=== PATIENT | female | born 1990 | race Caucasian/White ===

== ENCOUNTER 2016-07-16 08:34 | Observation (INO) | payer OTHER ==
[2016-07-16 09:06] VITALS: BP 130/86; PULSE 73; RESP 16; TEMP 98
== END 2016-07-16 15:45 | disposition home or self-care (01) | DRG 782 ==
LOC: OB 08:34
PROVIDERS: ADMIT Family Medicine; ATTEND Family Medicine
DX: O46.8X3 Other antepartum hemorrhage, third trimester (principal); Z3A.38 38 weeks gestation of pregnancy
CPT/HCPCS: 59025

== ENCOUNTER 2016-07-17 15:37 | Inpatient (IN) | payer OTHER ==
[2016-07-17] MEDS ORDERED: LACTATED RINGERS 1,000 ML IV PRN (16:02)
[2016-07-17] MEDS ORDERED: OXYTOCIN 10000 MU/ML SOL IM PRN (16:02)
[2016-07-17] MEDS ORDERED: MEPIVACAINE HCL 1% MPF 30 ML SOL INFIL PRN (16:02)
[2016-07-17] MEDS ORDERED: CARBOPROST 250 MCG/ML SOL IM PRN (16:02)
[2016-07-17] MEDS ORDERED: METHYLERGONOVINE MALEATE 0.2 MG/ML SOL IM PRN (16:02)
[2016-07-17] MEDS ORDERED: SODIUM CHLORIDE 0.9% FLUSH 10 ML SOL IV PRN (16:02)
[2016-07-17] MEDS ORDERED: FENTANYL 100MCG/2ML SOL IV PRN (16:02)
[2016-07-17 16:56] LABS: BASOPHILS % (AUTO) 1 % (0-3); EOSINOPHILS % (AUTO) 1 % (0-9); HEMATOCRIT 39 % (35-47); MEAN CORPUSCULAR HGB CONC 35.6 gm/dl (32.0-36.0); MEAN CORPUSCULAR VOLUME 86 fL (81-99); MONOCYTES % (AUTO) 6.8 % (0-12); NEUTROPHILS % (AUTO) 76.9 % (37-80)
[2016-07-17] MEDS ORDERED: DIPHENHYDRAMINE 50 MG/ML SOL IV PRN (17:35)
[2016-07-17] MEDS ORDERED: EPHEDRINE SULFATE 50 MG/ML SOL IV PRN (17:35)
[2016-07-17] MEDS ORDERED: NALBUPHINE HCL 20 MG/ML SOL IV PRN (17:35)
[2016-07-17] MEDS ORDERED: NALOXONE HYDROCHLORIDE 0.4 MG/ML SOL IV PRN (17:35)
[2016-07-17] MEDS: LACTATED RINGERS 1,000 ML IV SCH ×2 (17:45→18:12)
[2016-07-17] MEDS ORDERED: LACTATED RINGERS 1,000 ML IV SCH (17:45)
[2016-07-17] MEDS ORDERED: FENTANYL 250 MCG/ 5ML SOL ONE (18:02)
[2016-07-17] MEDS ORDERED: LIDOCAINE HCL 2% MPF SOL ONE (18:02)
[2016-07-17] MEDS ORDERED: ROPIVACAINE HYDROCHLORIDE 5 MG/ML SOL ONE (18:02)
[2016-07-17] MEDS ORDERED: ACETAMINOPHEN 325 MG PO PRN (22:20)
[2016-07-17] MEDS ORDERED: APAP/HYDROCODONE 325/5 TAB PO PRN (22:20)
[2016-07-17] MEDS ORDERED: WITCH HAZEL 1 EA PAD TOP PRN (22:20)
[2016-07-17] MEDS ORDERED: METHYLERGONOVINE MALEATE 0.2 MG TAB PO PRN (22:20)
[2016-07-17] MEDS ORDERED: FLEET ENEMA PR PRN (22:20)
[2016-07-17] MEDS ORDERED: BISACODYL 10 MG SUP PR PRN (22:20)
[2016-07-17] MEDS ORDERED: TEMAZEPAM 15MG 15 MG CAP PO PRN (22:20)
[2016-07-17] MEDS ORDERED: BENZOCAINE/MENTHOL 1 SPR TOP PRN (22:20)
[2016-07-17] MEDS: IBUPROFEN 600 MG TAB PO PRN (23:50)
[2016-07-17] MEDS: SODIUM CHLORIDE 0.9% FLUSH 10 ML SOL IV SCH (23:50)
[2016-07-18] MEDS: IBUPROFEN 600 MG TAB PO PRN ×3 (06:45→20:05)
[2016-07-18 08:10] VITALS: RESP 20
[2016-07-18] MEDS: SODIUM CHLORIDE 0.9% FLUSH 10 ML SOL IV SCH ×3 (08:50→23:39)
[2016-07-18] MEDS: MULTIVITAMIN2 1 EA TAB PO SCH (09:02)
[2016-07-18] MEDS: DOCUSATE SODIUM 100 MG SGL PO SCH ×2 (09:02→20:05)
[2016-07-18] MEDS: FOLIC ACID 1 MG TAB PO SCH (09:02)
[2016-07-19] MEDS: IBUPROFEN 600 MG TAB PO PRN ×2 (03:17→09:21)
[2016-07-19] MEDS: DOCUSATE SODIUM 100 MG SGL PO SCH (09:21)
[2016-07-19] MEDS: FOLIC ACID 1 MG TAB PO SCH (09:21)
[2016-07-19] MEDS: MULTIVITAMIN2 1 EA TAB PO SCH (09:21)
[2016-07-19 12:41] VITALS: BP 125/81; PULSE 72; TEMP 97.5; O2SAT 95
== END 2016-07-19 12:05 | disposition home or self-care (01) | DRG 775 ==
LOC: OB 15:37
PROVIDERS: ADMIT Family Medicine; ATTEND Family Medicine
PROC: 10907ZC Drainage of Amniotic Fluid, Therapeutic from Products of Conception, Via Natural or Artificial Opening (ICD-10-PCS; principal; 2016-07-17)
PROC: 10E0XZZ Delivery of Products of Conception, External Approach (ICD-10-PCS; 2016-07-17)
PROC: 0KQM0ZZ Repair Perineum Muscle, Open Approach (ICD-10-PCS; 2016-07-17)
DX: O76 Abnormality in fetal heart rate and rhythm complicating labor and delivery (principal); O70.1 Second degree perineal laceration during delivery; Z3A.38 38 weeks gestation of pregnancy; Z37.0 Single live birth
CPT/HCPCS: 36415; 85018; 85025; 94762; J0670; J2590; J2795; J3010

== ENCOUNTER 2018-03-04 08:10 | Inpatient (IN) | payer OTHER ==
[2018-03-04] MEDS ORDERED: NALBUPHINE HCL 20 MG/ML SOL IV PRN (12:00)
[2018-03-04] MEDS ORDERED: NALOXONE HYDROCHLORIDE 0.4 MG/ML SOL IV PRN (12:00)
[2018-03-04] MEDS ORDERED: DIPHENHYDRAMINE 50 MG/ML SOL IV PRN (12:00)
[2018-03-04] MEDS ORDERED: EPHEDRINE SULFATE 50 MG/ML SOL IV PRN (12:00)
[2018-03-04] MEDS: LACTATED RINGERS 1,000 ML IV SCH ×4 (12:05→14:47)
[2018-03-04 12:06] LABS: BASOPHILS % (AUTO) 0 % (0-3); EOSINOPHILS % (AUTO) 0 % (0-9); HEMATOCRIT 42 % (35-47); HEMOGLOBIN 13.4 gm/dl (12.0-15.5); LYMPHOCYTES % (AUTO) 16.4 % (10-50); MEAN CORPUSCULAR HEMOGLOBIN 29.1 pg (27.0-32.0); MEAN CORPUSCULAR HGB CONC 32.2 gm/dl (32.0-36.0); MEAN CORPUSCULAR VOLUME 90 fL (81-99); MONOCYTES % (AUTO) 3.4 % (0-12); NEUTROPHILS % (AUTO) 79.4 % (37-80)
[2018-03-04] MEDS ORDERED: FENTANYL 250 MCG/ 5ML SOL ONE (12:11)
[2018-03-04] MEDS ORDERED: LIDOCAINE HCL 2% MPF 10 ML SOL ONE (12:12)
[2018-03-04] MEDS ORDERED: SODIUM CHLORIDE 0.9% FLUSH 10 ML SOL IV PRN (12:33)
[2018-03-04] MEDS ORDERED: LACTATED RINGERS 1,000 ML IV PRN (12:33)
[2018-03-04] MEDS ORDERED: FENTANYL 100MCG/2ML SOL IV PRN (12:33)
[2018-03-04] MEDS ORDERED: MEPIVACAINE HCL 1% MPF 30 ML/VIAL SOL INFIL PRN (12:33)
[2018-03-04] MEDS ORDERED: CARBOPROST 250 MCG/ML SOL IM PRN (12:33)
[2018-03-04] MEDS ORDERED: METHYLERGONOVINE MALEATE 0.2 MG/ML SOL IM PRN (12:33)
[2018-03-04] MEDS ORDERED: OXYTOCIN 10000 MU/ML SOL IM PRN (12:33)
[2018-03-04] MEDS ORDERED: ONDANSETRON HCL 4 MG/2 ML SOL ONE (12:47)
[2018-03-04] MEDS: SODIUM CHLORIDE 0.9% FLUSH 10 ML SOL IV SCH ×2 (14:46→20:24)
[2018-03-04] MEDS ORDERED: WITCH HAZEL 1 EA PAD TOP PRN (16:23)
[2018-03-04] MEDS ORDERED: BENZOCAINE/MENTHOL 1 SPR TOP PRN (16:23)
[2018-03-04] MEDS ORDERED: TEMAZEPAM 15MG 15 MG CAP PO PRN (16:23)
[2018-03-04] MEDS ORDERED: FLEET ENEMA PR PRN (16:23)
[2018-03-04] MEDS ORDERED: BISACODYL 10 MG SUP PR PRN (16:23)
[2018-03-04] MEDS ORDERED: METHYLERGONOVINE MALEATE 0.2 MG TAB PO PRN (16:23)
[2018-03-04] MEDS: IBUPROFEN 600 MG TAB PO PRN ×2 (17:05→23:53)
[2018-03-04] MEDS: DOCUSATE SODIUM 100 MG SGL PO SCH (20:24)
[2018-03-05] MEDS: SODIUM CHLORIDE 0.9% FLUSH 10 ML SOL IV SCH ×3 (03:41→13:27)
[2018-03-05] MEDS: IBUPROFEN 600 MG TAB PO PRN ×3 (07:32→19:46)
[2018-03-05] MEDS ORDERED: MISOPROSTOL 100 MCG TAB PR ONE (08:00)
[2018-03-05] MEDS: APAP/HYDROCODONE 1 EACH TABLET PO PRN ×2 (08:39→09:27)
[2018-03-05] MEDS: DOCUSATE SODIUM 100 MG SGL PO SCH ×2 (08:44→21:52)
[2018-03-05 22:05] VITALS: RESP 16; TEMP 97.7
[2018-03-06] MEDS: IBUPROFEN 600 MG TAB PO PRN (02:12)
[2018-03-06 06:15] VITALS: BP 114/71; PULSE 69; O2SAT 98
== END 2018-03-06 10:50 | disposition home or self-care (01) | DRG 807 ==
LOC: OB 08:10 → OBSVTOIN 08:10 → INTOOBSV 15:55
PROVIDERS: ADMIT Family Medicine; ATTEND Family Medicine
PROC: 10E0XZZ Delivery of Products of Conception, External Approach (ICD-10-PCS; principal; 2018-03-04)
PROC: 10907ZC Drainage of Amniotic Fluid, Therapeutic from Products of Conception, Via Natural or Artificial Opening (ICD-10-PCS; 2018-03-04)
PROC: 6A550ZT Pheresis of Cord Blood Stem Cells, Single (ICD-10-PCS; 2018-03-04)
DX: O80 Encounter for full-term uncomplicated delivery (principal); Z37.0 Single live birth; Z3A.37 37 weeks gestation of pregnancy; O72.1 Other immediate postpartum hemorrhage
CPT/HCPCS: 36415; 59025; 85018; 85025; J0670; J2405; J2590; J3010; A9270-GY